=== PATIENT | male | born 1945 | race Caucasian/White ===

== ENCOUNTER → 2016-08-10 | Outpatient (CLI) | payer OTHER, BC ==
[2016-08-10 13:22] LABS: BILIRUBIN,URINE NEGATIVE (NEG); COLOR,URINE YELLOW; GLUCOSE, URINE (UA) NEGATIVE (NEG); NITRATE,URINE NEGATIVE (NEG); OCCULT BLOOD,URINE NEGATIVE (NEG); PH,URINE 5.5 (5.0-8.5); PROTEIN,URINE NEGATIVE (NEG); UROBILINOGEN,URINE 0.2 mg/dL (0.2)
[2016-08-10 14:04] LABS: CLARITY,URINE CLEAR (CLEAR); SQUAMOUS EPITHELIAL CELL,UR RARE; URINE SAMPLE TYPE CLEAN CATCH URINE
== END ==
LOC: LAB 12:59
PROVIDERS: ATTEND Internal Medicine
DX: R30.0 Dysuria (principal); M54.5 Low back pain
CPT/HCPCS: 81001; 99213

== ENCOUNTER 2016-08-11 23:10 | Emergency (ER) | payer OTHER, BC ==
[2016-08-12] MEDS ORDERED: MORPHINE SULFATE 4 MG/1 ML IVP ONE
[2016-08-12] MEDS ORDERED: NORMAL SALINE 10 ML SYRINGE FLUSH IVP PRN (00:01)
[2016-08-12] MEDS ORDERED: MORPHINE SULFATE 4 MG/1 ML ONE (00:03)
[2016-08-12 00:06] LABS: BASOPHILS # (AUTO) 0.08 10*3/UL; BASOPHILS % (AUTO) 1.3 % (0-1); EOSINOPHILS # (AUTO) 0.12 10*3/UL; HEMATOCRIT 42.1 % (42.0-52.0); HEMOGLOBIN 14.1 g/dL (14.0-18.0); LYMPHOCYTES # (AUTO) 0.85 10*3/uL; MEAN CORPUSCULAR HEMOGLOBIN 32.7 PG (27-31); MEAN CORPUSCULAR HGB CONC 33.5 g/dL (33-37); MEAN CORPUSCULAR VOLUME 97.7 FL (80-90); MEAN PLATELET VOLUME 9.1 FL (7.4-12.2); MONOCYTES # (AUTO) 0.94 10*3/UL (0.3-0.8); MONOCYTES % (AUTO) 15.7 % (5-15); NEUTROPHILS # (AUTO) 3.95 10*3/UL; NEUTROPHILS % (AUTO) 66.3 % (50-80); RED BLOOD COUNT 4.31 10^6/uL (4.70-6.10)
[2016-08-12 00:08] LABS: PLATELET MORPHOLOGY COMMENT NORMAL MORPHOLOGY (NORM); RBC MORPHOLOGY COMMENT NORMAL MORPHOLOGY (NORM); WBC MORPHOLOGY COMMENT NORMAL MORPHOLOGY (NORM)
[2016-08-12 00:13] LABS: BLOOD UREA NITROGEN 17 mg/dL (7-22); BUN/CREATININE RATIO 28.33 (6-20); SERUM ALBUMIN 4.3 g/dL (3.5-4.8)
[2016-08-12 00:57] VITALS: RESP 24; TEMP 97.8
[2016-08-12] MEDS ORDERED: HYDROcodone-APAP 10 MG-325 MG TABLET PO ONE (01:32)
--- NOTE | 2016-08-12 01:40 | PDOC ---
General Adult HPI - General Chief Complaint: Neck / Back Complaint Stated Complaint: "lower back pain from shingles" Date Seen by Provider: 08/11/16 Time Seen by Provider: 23:25 Source: POSITIVE: Patient, Spouse Exam Limitations: POSITIVE: No limitations Nurse's Notes Reviewed & Considered: Yes - History of Present Illness Initial Comment: The patient is a 70-year-old male. He states that yesterday morning he began to develop a rash on the left side of his back. He was seen in the clinic yesterday and was diagnosed with shingles in the distribution of T10 and he was started on Valtrex, 1 g every 8 hours for 7 days at that time. Patient states that since his clinic visit his shingles has spread anteriorly on the left side toward his umbilicus. He complains of pain in the distribution of a shingles. He also complains of pain over the area of T10. Patient has a history of COPD and is on oxygen, 5 L/m continuously. History of ulcerative colitis and patient does have an ileostomy due to his ulcerative colitis. Have you received a tetanus shot in the past 10 years?: Yes Body Location Affected: REPORTS: Abdomen, Back Timing: REPORTS: Abrupt Duration: >24 hours Severity: Moderate Quality: REPORTS: "Pain" Context: DENIES: None, Sitting, Standing, Activity, Emotional stress, Coughing, Recent Trauma, Recent Surgery, Sleep, Rest, Lifting, Turning, Bending, Fall, Near Fall, Other Modifying Factors: improves with: Nothing Similar Symptoms Previously: No Recent Care Received: REPORTS: Recently Seen, Treated by MD (As above) Any Prior Injuries Related to Current Complaint?: No - Patient Home Medications Home Medications: Home Medications Albuterol Sulfate 1 each NEB Q1-2H PRN #150 vial 06/22/11 Aspirin 1 tab ORAL QD tab 12/23/11 Denosumab [Prolia] 1 ml SQ q6 months #1 12/23/11 Lutein 1 tab PO DAILY tab 12/23/11 Denosumab [Prolia] 1 ml SUBCUT every 6 months #0 ml 02/02/12 Calcium Carbonate/Vitamin D3 [Calcium 1,000 + D3 Caplet] 1 tab PO BID tab 07/03 Fluticasone/Salmeterol [Advair 250-50 Diskus] 2 puff INH BID puff 07/03/12 Flaxseed Oil 1,000 mg PO DAILY cap 04/02/14 Albuterol Sulfate [Proventil Hfa] 1 - 2 puff INH Q4-6H PRN #1 puff 09/03/14 Silver Sulfadiazine [Silvadene] 20 gm TP TID #1 tube 10/07/14 predniSONE Tab [Deltasone Tab] 3 tab PO BID #30 tab 10/24/14 Minocycline HCl 100 mg PO BID #14 cap 08/14/15 Hydrochlorothiazide 1 tab PO DAILY #90 tab 03/25/16 Montelukast Sodium [Singulair] 1 tab PO QHS #90 tab 03/25/16 Valsartan [Diovan] 1 cap PO DAILY #90 cap 03/25/16 Mupirocin Calcium [Bactroban] 1 applic TOPICAL QHS #3 tube 04/01/16 Tiotropium Vichy [Spiriva] 1 cap INH QD #90 cap 05/25/16 Allopurinol 0.5 tab PO DAILY #45 tab 07/21/16 Valacyclovir HCl [Valacyclovir] 1,000 mg PO Q8H #21 tab 08/10/16 HYDROcodone/APAP 10/325 Tab [Xenia 10/325 Tab] 1 tab PO Q6H PRN #25 tab - Patient Allergies Allergies/Adverse Reactions: Allergies Allergy/AdvReac Type Severity Reaction Status Date / Time moxifloxacin HCl Allergy Severe RASH Verified 08/12/16 00:25 [From Avelox] levofloxacin [From Levaquin] AdvReac Intermediate achellies Verified 08/12/16 00 :25 tendon pain Past Medical History - heen HEENT History: Denies History Cardiovascular History: Hypertension, CHF, Hyperlipidemia Respiratory History: COPD, Other (please comment) Additional Respiratory History: hx tobacco abuse Gastrointestinal History: Other (please comment) Additional Gastrointestinal History: illeostomy Genitourinary History: Denies History Endocrine History: Denies History Musculoskeletal History: Osteoporosis, Gout Neurological History: Denies History Blood Disorders: Denies History Psychiatric History: Denies History Cancer History: Denies History In Past Year Been Physically Harmed or Verbally Threatened: No History of MDRO: No Tobacco Use: Former Smoker Alcohol Use: Occasionally Substance Use Type: None Previous Surgical History: Yes Type / Date of Surgery: illeostomy. thyroid bx Significant Family History: No pertinent family hx Past Medical History Reviewed: Reviewed - No Changes ROS - Limitations ROS Limitations: No Limitations Constitution: REPORTS: Denies Symptoms Cardiovascular: REPORTS: Denies Cardiac Symptoms Respiratory: REPORTS: Denies Resp Symptoms Neurological: REPORTS: Denies Neuro Symptoms Gastrointestinal: REPORTS: Denies GI Symptoms Endocrine: REPORTS: Denies Symptoms Musculoskeletal: REPORTS: Back Pain (Area of T10) Genitourinary: REPORTS: Denies Symptoms Eyes: REPORTS: Denies Symptoms ENT: REPORTS: Denies Symptoms Skin: REPORTS: Skin Lesions (Herpes zoster on the left in the distribution of T10) Lympathic: REPORTS: Denies Lympathic Symptoms Immunologic: POSITIVE: Denies Symptoms Psychiatric: POSITIVE: Denies Psych Symptoms General Adult Exam - General Appearance General Appearance: POSITIVE: Alert, Cooperative, No Acute Distress, No Evidence of Trauma - HEENT HEENT: POSITIVE: Head Inspection Nml, Eyes Inspection Nml, Ears Inspection Nml, Nose Inspection Nml, Oral/Dental Inspect. Nml, Pharynx Inspect. Nml, PERRL, EOMI - Pupils Pupil Size: 3 mm: Bilateral - Neck Neck: POSITIVE: Normal Inspection, Thyroid Normal - Respiratory Respiratory: POSITIVE: No Respiratory Distress, Breath Sounds Normal, Chest Non- Tender - Cardiovascular Cardiovascular: POSITIVE: Regular Rate & Rhythm, No Murmur, No Gallop, PMI Normal Peripheral Pulses: Radial (R): 2+, Radial (L): 2+ - Abdomen Abdomen: Soft: (All Quadrants), Normal Bowel Sounds: (All Quadrants), Denies Tenderness: (All Quadrants), No Splenomegaly: (All Quadrants), No Hepatomegaly: (All Quadrants), No Guarding: (All Quadrants), No Rebound: (All Quadrants), No Palpable Pulse: (All Quadrants), No Palpabale Mass: (All Quadrants), No Distention: (All Quadrants), No Rigidity: (All Quadrants) - Back Back: POSITIVE: Thoracic Tenderness (Some tenderness on palpation over T10) - Skin Skin: POSITIVE: Zoster-Like Rash (Left T10 distribution) - Extremities Extremity: Non-Tender: (All Extremities), Normal ROM: (All Extremities), Normal Inspection: (All Extremities) - Neurological / Psychological Neurological: POSITIVE: Oriented X3, 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 Lab Results Reviewed: Yes Lab Results:: Laboratory Results 08/12/16 Range/Units 00:03 WBC 5.97 (4.8-10.8) 10^3/uL RBC 4.31 L (4.70-6.10) 10^6/uL Hgb 14.1 (14.0-18.0) g/dL Hct 42.1 (42.0-52.0) % MCV 97.7 H (80-90) FL MCH 32.7 H (27-31) PG MCHC 33.5 (33-37) g/dL RDW Std Deviation 46.6 (39-50) fL RDW Coeff of Stephan 13.3 (11.5-14.5) % Plt Count 136 L (140-350) 10*3/uL MPV 9.1 (7.4-12.2) FL Immature Gran % (Auto) 0.5 (0-5) % Neut % (Auto) 66.3 (50-80) % Lymph % (Auto) 14.2 (10-50) % Hayes % (Auto) 15.7 H (5-15) % Eos % (Auto) 2.0 (0-8) % Baso % (Auto) 1.3 H (0-1) % Immature Gran # (Auto) 0.03 10*3/UL Neut # (Auto) 3.95 10*3/UL Lymph # (Auto) 0.85 10*3/uL Hayes # (Auto) 0.94 H (0.3-0.8) 10*3/UL Eos # (Auto) 0.12 10*3/UL Baso # (Auto) 0.08 10*3/UL WBC Morphology Comment Normal morphology (NORM) Plt Morphology Comment Normal morphology (NORM) RBC Morph Comment Normal morphology (NORM) Sodium 135 (135-145) meq/L Potassium 4.5 (3.8-5.2) meq/L Chloride 95 L (98-112) meq/L Carbon Dioxide 29 (23-33) meq/L Anion Gap 11 (5-20) BUN 17 (7-22) mg/dL Creatinine 0.6 L (0.70-1.50) mg/dL Estimated GFR Advanced Manufacturing Technician BUN/Creatinine Ratio 28.33 H (6-20) Glucose 111 H (78-110) mg/dL Calculated Osmolality 282.0 (267-292) mOsm/kg Calcium 10.0 (8.7-10.7) mg/dL Total Bilirubin 1.0 (0.3-1.2) mg/dL AST 35 (21-57) IU/L ALT 37 (21-72) IU/L Alkaline Phosphatase 51 (38-126) IU/L Total Protein 6.8 (6.1-8.0) g/dL Albumin 4.3 (3.5-4.8) g/dL Globulin 2.5 (2.50-4.10) g/dL Albumin/Globulin Ratio 1.70 (1.3-2.0) mg/g - Patient's Progress Pain Medication Addressed: POSITIVE: Yes (4 mg morphine IV given with good pain relief. Patient discharged on hydrocodone/APAP) School/Work Release Addressed: POSITIVE: Not Applicable Re-Examine Time: 01:15 Re-Examine Comment: Patient achieved good pain relief from morphine. Patient given prescription for hydrocodone/APAP for outpatient use. Status: POSITIVE: Improved, Re-Examined Antibiotics Given: No - Consult Counseled: POSITIVE: Patient, Family, RE: Lab Results, RE: Radiology Results, RE : DX, RE: Need for F/U Patient Care Time - Estimated PCT Patient Care Time (In Minutes): 30 Vital Signs - Recent Vital Signs Vital Signs: Vital Signs (Last 8 hours) Temp Pulse Resp BP Pulse Ox 08/12/16 01:14 76 129/80 98 08/12/16 00:48 97.8 F 100 24 156/85 94 - VS Reviewed Vital Signs Reviewed: Yes Discharge Clinical Impression: Shingles Discharge Disposition: Discharged to Home Condition: Fair Prescriptions / Orders: HYDROcodone/APAP 10/325 Tab [Xenia 10/325 Tab] 1 tab PO Q6H PRN #25 tab PRN Reason: Pain Patient Instructions Given at Discharge: Shingles (ED) Additional Instructions: Continue Valtrex for its full one-week course. Hydrocodone/APAP, one every 6 hours as necessary for pain. Return here anytime if condition worsens. Follow- up with your primary care provider. Follow Up With: MARY HART [Primary Care Provider] - (Instructions and medication as above. Follow-up with your primary care provider. Return here as necessary.)
--- NOTE | 2016-08-12 09:04 | DI ---
XR L-SPINE 2-3 VW,08/11/2016 11:36 PM: Clinical History: Pain and shingles. Previous Exam: None at this facility. Findings: AP and lateral views of the lumbar spine are obtained, and demonstrate diffuse degenerative changes. Postsurgical changes are also noted. Peripheral vascular calcifications are seen. Impression: Degenerative changes of the lumbar spine without fractures.
== END 2016-08-12 01:35 | disposition home or self-care (01) ==
LOC: ER 23:10
DX: B02.9 Zoster without complications (principal); M81.0 Age-related osteoporosis without current pathological fracture
CPT/HCPCS: 72100; 80053; 85025; 96374; 99283; J2270

== ENCOUNTER → 2016-09-30 | Outpatient (CLI) | payer OTHER, BC | LOC: MMPC 11:11 | PROVIDERS: ATTEND Internal Medicine | DX: J44.9 Chronic obstructive pulmonary disease, unspecified (principal); I10 Essential (primary) hypertension; M81.0 Age-related osteoporosis without current pathological fracture | CPT/HCPCS: 99214; G0463 ==